=== PATIENT | female | born 1985 | race Caucasian/White ===

== ENCOUNTER 2016-06-13 15:47 | Emergency (ER) | payer OTHER | END 2016-06-13 18:15 | disposition home or self-care (01) | LOC: ER 15:47 | DX: R10.10 Upper abdominal pain, unspecified (principal); R07.89 Other chest pain; R07.81 Pleurodynia; Z79.3 Long term (current) use of hormonal contraceptives; Z79.899 Other long term (current) drug therapy; Z88.1 Allergy status to other antibiotic agents ==